=== PATIENT | male | born 1935 | race Caucasian/White ===

== ENCOUNTER 2017-04-02 17:06 | Inpatient (IN) | payer MEDICARE, BC ==
[~2017-04-02] VITALS: Ht 193 cm; Wt 100.0 kg
[2017-04-02] MEDS ORDERED: IOHEXOL 350 MG/ML 10 ML VIAL (for RAD DIAG) IVCONTRAST ONE (17:07)
[2017-04-02] MEDS ORDERED: ceFAZolin 2 GM PREMIX 50 ML ONE (17:11)
--- NOTE | 2017-04-02 17:22 | RADRPT ---
EXAM DATE/TIME: 04/02/2017 16:58 [facility] COMPARISON: No previous studies available for comparison. INDICATIONS : Trauma alert- patient fell from tree. MEDICAL HISTORY : None. SURGICAL HISTORY : None. ENCOUNTER: Initial ACUITY: 1 day PAIN SCORE: 10/10 LOCATION: Bilateral chest FINDINGS: A single AP portable supine view of the chest was obtained. The lung apices are cut off the exam. The patient is status post median sternotomy. There are no confluent infiltrates or effusions. The visua lized bony structures are intact. The heart size is within normal limits. There are calcified gallsto venita in the right upper abdomen. CONCLUSION: 1. Limited suboptimal study demonstrating no acute cardiopulmonary disease. 2. Calcified gallstones. Luis Roa MD on April 02, 2017 at 17:19 Board Certified Radiologist. This report was verified electronically.
--- NOTE | 2017-04-02 17:27 | HHI.HP ---
HPI Service Critical Care Medicine Primary Care Physician Unknown Admission Diagnosis Diagnosis: Chief Complaint: Back pain Travel History International Travel<30 Days: No Contact w/Intl Traveler <30 Da: No Traveled to Known Affected Are: No Review of Systems Constitutional: DENIES: Diaphoretic episodes, Fatigue, Fever, Weight gain, Weight loss, Chills, Dizziness, Change in appetite, Night Sweats Endocrine: DENIES: Heat/cold intolerance, Polydipsia, Polyuria, Polyphagia Eyes: DENIES: Blurred vision, Diplopia, Eye inflammation, Eye pain, Vision loss , Photosensitivity, Double Vision Ears, nose, mouth, throat: DENIES: Tinnitus, Hearing loss, Vertigo, Nasal discharge, Oral lesions, Throat pain, Hoarseness, Ear Pain, Running Nose, Epistaxis, Sinus Pain, Toothache, Odynophagia Respiratory: DENIES: Apneas, Cough, Snoring, Wheezing, Hemoptysis, Sputum production, Shortness of breath Cardiovascular: DENIES: Chest pain, Palpitations, Syncope, Dyspnea on Exertion , PND, Lower Extremity Edema, Orthopnea, Claudication Gastrointestinal: DENIES: Abdominal pain, Black stools, Bloody stools, Constipation, Diarrhea, Nausea, Vomiting, Difficulty Swallowing, Anorexia Genitourinary: DENIES: Sexual dysfunction, Urinary frequency, Urinary incontinence, Urgency, Hematuria, Dysuria, Nocturia, Penile Discharge, Testicular Pain, Testicular Swelling Musculoskeletal: COMPLAINS OF: Back pain (acute upper thoracic, chronic lumbar) Integumentary: DENIES: Abnormal pigmentation, Nail changes, Pruritus, Rash Hematologic/lymphatic: DENIES: Bruising, Lymphadenopathy Immunologic/allergic: DENIES: Eczema, Urticaria Neurologic: DENIES: Abnormal gait, Headache, Localized weakness, Paresthesias, Seizures, Speech Problems, Tremor, Poor Balance Psychiatric: DENIES: Anxiety, Confusion, Mood changes, Depression, Hallucinations, Agitation, Suicidal Ideation, Homicidal Ideation, Delusions Past Family Social History Allergies: Coded Allergies: No Known Allergies (Unverified , 04/02/17) Past Medical History HTN CAD DM Hypercholesterolemia Chronic back pain Gout Past Surgical History CABG X4 Vasectomy Family History Reviewed, not relevant Social History Denies alcohol, tobacco or drugs Physical Exam Physical Exam A&O, NAD PERRL, EOMI, sclera non icteric, conjunctiva pink, mucosa moist Neck soft, NT, trachea midline CTA B, no tenderness or crepitus to palpation RRR Tender upper thoracic spine Abd soft, NT, ND Pelvis stable, non tender, palpable femoral arteries No CCE, palpable DP 2.5 cm laceration left anterior saez - washed out and closed in TB, superficial abrasion right anterior saez CN 2-12 grossly intact, no focal neurologic defecit Mood and affect appropriate Caprini VTE Risk Assessment Caprini VTE Risk Assessment: Mod/High Risk (score >= 2) VTE Pharm Contraindication: Spinal surgery Caprini Risk Assessment Model Point Value = 1 Point Value = 2 Point Value = 3 Point Value = 5 Age 41-60 Minor surgery BMI > 25 kg/m2 Swollen legs Varicose veins or History of unexplained or recurrent spontaneous Oral contraceptives or hormone replacement Sepsis (< 1 month) Serious lung disease, including pneumonia (< 1 month) Abnormal pulmonary function Acute myocardial infarction Congestive heart failure (< 1 month) History of inflammatory bowel disease Medical patient at bed rest Age 61-74 Arthroscopic surgery Major open surgery (> 45 min) Laparoscopic surgery (> 45 min) Malignancy Confined to bed (> 72 hours) Immobilizing plaster cast Central venous access Age >= 75 History of VTE Family history of VTE Factor V Leiden Prothrombin [id number] Lupus anticoagulant Anticardiolipin antibodies Elevated serum homocysteine Heparin-induced thrombocytopenia Other congenital or acquired thrombophilia Stroke (< 1 month) Elective arthroplasty Hip, pelvis, or leg fracture Acute spinal cord injury (< 1 month) Prophylaxis Regimen Total Risk Factor Score Risk Level Prophylaxis Regimen 0-1 Low Early ambulation 2 Moderate Order ONE of the following: *Sequential Compression Device (SCD) *Heparin 5000 units SQ BID 3-4 Higher Order ONE of the following medications: *Heparin 5000 units SQ TID *Enoxaparin/Lovenox 40 mg SQ daily (WT < 150 kg, CrCl > 30 mL/min) *Enoxaparin/Lovenox 30 mg SQ daily (WT < 150 kg, CrCl > 10-29 mL/min) *Enoxaparin/Lovenox 30 mg SQ BID (WT < 150 kg, CrCl > 30 mL/min) AND/OR *Sequential Compression Device (SCD) 5 or more Highest Order ONE of the following medications: *Heparin 5000 units SQ TID (Preferred with Epidurals) *Enoxaparin/Lovenox 40 mg SQ daily (WT < 150 kg, CrCl > 30 mL/min) *Enoxaparin/Lovenox 30 mg SQ daily (WT < 150 kg, CrCl > 10-29 mL/min) *Enoxaparin/Lovenox 30 mg SQ BID (WT < 150 kg, CrCl > 30 mL/min) AND *Sequential Compression Device (SCD) Assessment and Plan Assessment and Plan fall from ladder approximately ten to fifteen feet Cuco Urbina MD Apr 02, 2017 17:27
--- NOTE | 2017-04-02 17:29 | RADRPT ---
EXAM DATE/TIME: 04/02/2017 17:14 [facility] COMPARISON: No previous studies available for comparison. INDICATIONS : Trauma alert, fall. RADIATION DOSE: 56.35 CTDIvol (mGy) MEDICAL HISTORY : Diabetes mellitus type 2. Hypertension. SURGICAL HISTORY : CABG ENCOUNTER: Initial ACUITY: 1 day PAIN SCALE: 0/10 LOCATION: cranial TECHNIQUE: Multiple contiguous axial images were obtained of the head. Using automated exposure control and adj ustment of the mA and/or kV according to patient size, radiation dose was kept as low as reasonably a chievable to obtain optimal diagnostic quality images. DICOM format image data is available electro nically for review and comparison. FINDINGS: CEREBRUM: There is diffuse moderate atrophic change with sulcal and ventricular prominence. No evidence of midl ine shift, mass lesion, hemorrhage or acute infarction. No extra-axial fluid collections are seen. POSTERIOR FOSSA: The cerebellum and brainstem are intact. The 4th ventricle is midline. The cerebellopontine angle i s unremarkable. EXTRACRANIAL: The visualized portion of the orbits is intact. SKULL: The calvaria is intact. No evidence of skull fracture. CONCLUSION: Negative trauma CT. Luis Roa MD on April 02, 2017 at 17:25 Board Certified Radiologist. This report was verified electronically.
[2017-04-02 17:30] LABS: I-STAT POTASSIUM 4.5 MMOL/L (3.5-4.9)
[2017-04-02 17:33] LABS: AUTOMATED NEUTROPHIL # 15.9 TH/MM3 (1.8-7.7); BASOPHIL # 0.1 TH/MM3 (0-0.2); BASOPHIL % 0.4 % (0.0-2.0); EOSINOPHIL # 0.1 TH/MM3 (0-0.4); EOSINOPHIL % 0.7 % (0.0-4.0); HEMATOCRIT 39.6 % (39.0-51.0); HEMO FLAGS DIFF FINAL; LYMPH % 5.5 % (9.0-44.0); MEAN CELL VOLUME 98.5 FL (80.0-100.0); MEAN CORPUSCULAR HEMOGLOBIN 33.9 PG (27.0-34.0); MEAN CORPUSCULAR HGB CONC 34.4 % (32.0-36.0); MONO % 7.7 % (0.0-8.0); NEUT % 85.7 % (16.0-70.0); PLATELET COUNT 138 TH/MM3 (150-450); RED BLOOD COUNT 4.02 MIL/MM3 (4.50-5.90); RED CELL DISTRIBUTION WIDTH 13.8 % (11.6-17.2); WHITE BLOOD COUNT 18.5 TH/MM3 (4.0-11.0)
--- NOTE | 2017-04-02 17:40 | RADRPT ---
EXAM DATE/TIME: 04/02/2017 17:14 [facility] COMPARISON: No previous studies available for comparison. INDICATIONS : Trauma alert, fall RADIATION DOSE: 44.07 CTDIvol (mGy) MEDICAL HISTORY : Hypertension. Diabetes mellitus type 2. SURGICAL HISTORY : CABG ENCOUNTER: Initial ACUITY: 1 day PAIN SCALE: 0/10 LOCATION: neck TECHNIQUE: Volumetric scanning of the cervical spine was performed. Multiplanar reconstructions in the sagittal, coronal and oblique axial planes were performed. Using automated exposure control and adjustment o f the mA and/or kV according to patient size, radiation dose was kept as low as reasonably achievable to obtain optimal diagnostic quality images. DICOM format image data is available electronically f or review and comparison. FINDINGS: The sagittal reconstructions demonstrate that the cervical vertebral bodies are intact. There are fra ctures involving the anterior aspects of the T1 and T2 vertebral bodies with invagination of the supe rior endplates. The dens is intact. The alignment is anatomic. The axial images images of the cervical vertebral bodies and posterior elements are intact. Degenerat shari changes are noted involving the facet joints at multiple levels. The fractures of the T1 and T2 v ertebral bodies are again visualized. CONCLUSION: 1. Racture's of the T1 and T2 vertebral arteries. Please see thoracic spine CT for further details. 2. The cervical spine is intact with no cervical fracture. Luis Roa MD on April 02, 2017 at 17:32 Board Certified Radiologist. This report was verified electronically.
[2017-04-02 17:41] LABS: PROTHROMBIN TIME - PATIENT 11.1 SEC (9.8-11.6)
[2017-04-02 17:43] VITALS: BP 128/66; PULSE 60; RESP 18; TEMP 99.8; O2SAT 97
[2017-04-02 17:45] VITALS: BP 128/66; PULSE 69; RESP 18; O2SAT 92; O2SAT 97
--- NOTE | 2017-04-02 17:45 | RADRPT ---
EXAM DATE/TIME: 04/02/2017 17:21 [facility] COMPARISON: No previous studies available for comparison. INDICATIONS : Trauma alert, fall. T1 and T2 vertebral body fracture seen on cervical spine CT. IV CONTRAST: 75 cc Omnipaque 350 (iohexol) IV ; Cumulative dose for multiple exams. RADIATION DOSE: 14.59 CTDIvol (mGy) ; Combined studies - Thorax/Abdomen/Pelvis MEDICAL HISTORY : Hypertension. Diabetes mellitus type 2. SURGICAL HISTORY : CABG ENCOUNTER: Initial ACUITY: 1 day PAIN SCALE: 0/10 LOCATION: chest TECHNIQUE: Volumetric scanning of the chest was performed. Using automated exposure control and adjustment of t he mA and/or kV according to patient size, radiation dose was kept as low as reasonably achievable to obtain optimal diagnostic quality images. DICOM format image data is available electronically for review and comparison. Follow-up recommendations for detected pulmonary nodules are based at a minimum on nodule size and pa tient risk factors according to Fleischner Society Guidelines. FINDINGS: LUNGS: There is no consolidation or pneumothorax. No concerning pulmonary nodule is visualized. PLEURA: There is no pleural thickening or pleural effusion. MEDIASTINUM: Status post median sternotomy which appears recent. The median sternotomy edges are sharp and nonunit ed in appearance. There is increased density in the anterior mediastinum. There is no adenopathy. Cor onary artery calcifications are present. The heart size is within normal limits and there is no peric ardial effusion or adenopathy. AXILLAE: Within normal limits. No lymphadenopathy. SKELETAL: The known fractures of the T1 and T2 vertebral bodies are again visualized. MISCELLANEOUS: The visualized upper abdominal organs demonstrate no acute abnormality. There are multiple calcified gallstones noted. CONCLUSION: 1. The known fractures of the T1 and T2 vertebral bodies are again visualized. Please see thoracic sp ine CT for further details. 2. Status post median sternotomy appears recent. There is increased density in the anterior mediastin um which represents small amount of hemorrhage or edema and is nonspecific. This could be postsurgica l. 3. Multiple calcified gallstones. Luis Roa MD on April 02, 2017 at 17:38 Board Certified Radiologist. This report was verified electronically.
--- NOTE | 2017-04-02 17:47 | RADRPT ---
EXAM DATE/TIME: 04/02/2017 17:21 [facility] COMPARISON: No previous studies available for comparison. INDICATIONS : Trauma alert, fall. IV CONTRAST: 75 cc Omnipaque 350 (iohexol) IV ; Cumulative dose for multiple exams. ORAL CONTRAST: No oral contrast ingested. RADIATION DOSE: 14.59 CTDIvol (mGy) ; Combined studies - Thorax/Abdomen/Pelvis MEDICAL HISTORY : Hypertension. Diabetes mellitus type 2. SURGICAL HISTORY : CABG ENCOUNTER: Initial ACUITY: 1 day PAIN SCALE: 0/10 LOCATION: abdomen TECHNIQUE: Volumetric scanning of the abdomen and pelvis was performed. Using automated exposure control and ad justment of the mA and/or kV according to patient size, radiation dose was kept as low as reasonably achievable to obtain optimal diagnostic quality images. DICOM format image data is available electro nically for review and comparison. FINDINGS: LOWER LUNGS: The visualized lower lungs are clear. LIVER: Homogeneous density without lesion. There is no dilation of the biliary tree. There are multiple rosemary cified gallstones with no gallbladder wall thickening or inflammatory change. SPLEEN: Normal size without lesion. PANCREAS: Within normal limits. KIDNEYS: Normal in size and shape. There is no solid mass, stone or hydronephrosis. There are simple cysts in the left kidney. ADRENAL GLANDS: Within normal limits. VASCULAR: There is no aortic aneurysm. BOWEL/MESENTERY: The stomach, small bowel, and colon demonstrate no acute abnormality. There is no free intraperitone al air or fluid. ABDOMINAL WALL: Within normal limits. RETROPERITONEUM: There is no lymphadenopathy. BLADDER: No wall thickening or mass. REPRODUCTIVE: Within normal limits. INGUINAL: There is no lymphadenopathy or hernia. MUSCULOSKELETAL: Within normal limits for patient age. CONCLUSION: 1. No evidence of visceral injury. 2. Calcified gallstones. 3. Left renal cysts. Luis Roa MD on April 02, 2017 at 17:43 Board Certified Radiologist. This report was verified electronically.
--- NOTE | 2017-04-02 17:54 | PD ---
HPI Chief Complaint: Trauma (Alert) Time Seen by Provider: 17:20 Travel History International Travel<30 days: No Contact w/Intl Traveler<30days: No Traveled to known affect area: No History of Present Illness HPI Patient is an 82-year-old male who was a trauma alert transfer from [facility]. As per patient, patient was cutting trees today, reports that he fell 15-18 feet down from the tree onto the ground. Patient denies any loss of consciousness on scene. Patient actually drove himself to the hospital. Patient does take aspirin as well as atenolol. Patient has history of coronary artery disease and has history of CABG in the past. As per report from [facility], patient was given transaxemic acid as he did have a positive fast exam. Patient with complaints of pain all over his body at this time. PFSH Past Medical History Hx Anticoagulant Therapy: Yes Cardiac Catheterization: Yes Cardiovascular Problems: Yes Cerebrovascular Accident: Yes Diabetes: Yes Past Surgical History Coronary Artery Bypass Graft: Yes Social History Alcohol Use: No Tobacco Use: No Substance Use: No Allergies-Medications (Allergen,Severity, Reaction): Coded Allergies: No Known Allergies (Unverified , 04/02/17) Review of Systems General / Constitutional: No: Fever Eyes: No: Visual changes HENT: No: Headaches Cardiovascular: No: Chest Pain or Discomfort Respiratory: No: Shortness of Breath Gastrointestinal: No: Abdominal Pain Genitourinary: No: Dysuria Musculoskeletal: Positive: Pain Skin: No Rash Neurologic: No: Weakness Psychiatric: No: Depression Endocrine: No: Polydipsia Hematologic/Lymphatic: No: Easy Bruising Physical Exam Narrative GENERAL: moderate distress SKIN: Focused skin assessment warm/dry. HEAD: Atraumatic. Normocephalic. EYES: Pupils equal and round. No scleral icterus. No injection or drainage. ENT: No nasal bleeding or discharge. Mucous membranes pink and moist. NECK: Trachea midline. No JVD. Patient in c-spine precautions CARDIOVASCULAR: Regular rate and rhythm. No murmur appreciated. RESPIRATORY: No accessory muscle use. Clear to auscultation. Breath sounds equal bilaterally. GASTROINTESTINAL: Abdomen soft, non-tender, nondistended. Hepatic and splenic margins not palpable. MUSCULOSKELETAL: No obvious deformities. No clubbing. No cyanosis. No edema. Patient with 2.5cm laceration to anterior right shit, patient moving all extremities NEUROLOGICAL: Awake and alert. No obvious cranial nerve deficits. Motor grossly within normal limits. Normal speech. PSYCHIATRIC: Appropriate mood and affect; insight and judgment normal. Data Data Last Documented VS Vital Signs Date Time Temp Pulse Resp B/P (MAP) Pulse Ox O2 Delivery O2 Flow Rate FiO2 04/02/17 17:45 97 Nasal Cannula 2.00 04/02/17 17:45 69 18 128/66 (86) 04/02/17 17:43 99.8 Orders Orders Cefazolin 2 Gm Premix (Ancef 2 Gm Premix (04/02/17 17:11) I-Stat Profile (04/02/17 17:09) I-Stat Creatinine (04/02/17 17:09) Complete Blood Count With Diff (04/02/17 17:09) Prothrombin Time / Inr (Pt) (04/02/17 17:09) Act Partial Throm Time (Ptt) (04/02/17 17:09) Type And Screen (04/02/17 17:09) Chest, Single Ap (04/02/17 17:09) Ct Brain W/O Iv Contrast(Rout) (04/02/17 17:09) Ct Cerv Spine W/O Contrast (04/02/17 17:09) Ct Abd/Pel W Iv Contrast(Rout) (04/02/17 17:09) Ct Thorax/ Chest W Iv Contrast (04/02/17 17:09) Ct Thor Spine W/O Contrast (04/02/17 17:09) Ct Lumb Spine W/O Contrast (04/02/17 17:09) Iv Access Insert/Monitor (04/02/17 17:09) Ecg Monitoring (04/02/17 17:09) Oximetry (04/02/17 17:09) Oxygen Administration (04/02/17 17:09) Electrocardiogram (04/02/17 17:32) Ckmb (Isoenzyme) Profile (04/02/17 17:32) Troponin I (04/02/17 17:32) Iohexol 350 Inj (Omnipaque 350 Inj) (04/02/17 17:07) Admit To Inpatient (04/02/17 ) Vital Signs (Adult) CLARK.QSHIFT (04/02/17 17:49) Intake + Output CLARK.Q8H (04/02/17 17:49) Neuro Checks CLARK.Q4H (04/02/17 17:49) Activity Bed Rest (04/02/17 17:49) Diet Diabetic (04/02/17 Dinner) Scd / Neil / Foot Pump CLARK.QSHIFT (04/02/17 17:49) Resp Incentive Spirometry (04/02/17 ) ^ Cervical Collar (04/02/17 17:49) Complete Blood Count With Diff (04/03/17 06:00) Basic Metabolic Panel (Bmp) (04/03/17 06:00) Sodium Chloride 0.9% Flush (Ns Flush) (04/02/17 18:00) Acetamin-Hydrocod 325-5 Mg ([place] 5-325 (04/02/17 18:00) Acetamin-Hydrocod 325-5 Mg ([place] 5-325 (04/02/17 18:00) Ketorolac Inj (Toradol Inj) (04/02/17 18:00) Enalaprilat Inj (Vasotec Inj) (04/02/17 18:00) Ondansetron Inj (Zofran Inj) (04/02/17 18:00) Consult Pt Eval & Treat (04/03/17 06:00) Docusate Sodium (Colace) (04/02/17 21:00) Magnesium Hydroxide Liq (Milk Of Magnesi (04/02/17 18:00) Consult Neurosurgery (04/02/17 ) ^ Initiate Protocol (04/02/17 17:49) Instruction (04/02/17 17:49) Misc Nursing Information (04/02/17 18:00) Chlorhexidine 2% Cloth (Chlorhexidine 2% (04/03/17 04:00) Chlorhexidine 2% Cloth (Chlorhexidine 2% (04/02/17 18:00) Mrsa Pcr Surveillance (04/02/17 17:49) Inpatient Certification (04/02/17 ) Labs Laboratory Tests Test 04/02/17 17:09 White Blood Count 18.5 TH/MM3 Red Blood Count 4.02 MIL/MM3 Hemoglobin 13.6 GM/DL Bedside Hemoglobin 12.9 G/DL Hematocrit 39.6 % Bedside Hematocrit 38.0 % Mean Corpuscular Volume 98.5 FL Mean Corpuscular Hemoglobin 33.9 PG Mean Corpuscular Hemoglobin Concent 34.4 % Red Cell Distribution Width 13.8 % Platelet Count 138 TH/MM3 Mean Platelet Volume 8.9 FL Neutrophils (%) (Auto) 85.7 % Lymphocytes (%) (Auto) 5.5 % Monocytes (%) (Auto) 7.7 % Eosinophils (%) (Auto) 0.7 % Basophils (%) (Auto) 0.4 % Neutrophils # (Auto) 15.9 TH/MM3 Lymphocytes # (Auto) 1.0 TH/MM3 Monocytes # (Auto) 1.4 TH/MM3 Eosinophils # (Auto) 0.1 TH/MM3 Basophils # (Auto) 0.1 TH/MM3 CBC Comment DIFF FINAL Differential Comment Prothrombin Time 11.1 SEC Prothromb Time International Ratio 1.0 RATIO Activated Partial Thromboplast Time 25.0 SEC Bedside Sodium 145 MMOL/L Bedside Potassium 4.5 MMOL/L Bedside Chloride 107 MMOL/L Bedside Blood Urea Nitrogen 21 MG/DL Bedside Creatinine 1.8 MG/DL Bedside Glucose 124 MG/DL [facility] Medical Screen Exam Complete: Yes Emergency Medical Condition: Yes Interpretation(s) EKG at 1741: Sinus daniel at 50bpm, qt/qtc: 401/373, non specific changes Vital Signs Date Time Temp Pulse Resp B/P (MAP) Pulse Ox O2 Delivery O2 Flow Rate FiO2 04/02/17 17:45 97 Nasal Cannula 2.00 04/02/17 17:43 99.8 60 18 128/66 (86) 97 Nasal Cannula 2.00 Laboratory Tests Test 04/02/17 17:09 White Blood Count 18.5 TH/MM3 (4.0-11.0) Red Blood Count 4.02 MIL/MM3 (4.50-5.90) Hemoglobin 13.6 GM/DL (13.0-17.0) Bedside Hemoglobin 12.9 G/DL (12.0-17.0) Hematocrit 39.6 % (39.0-51.0) Bedside Hematocrit 38.0 % (38.0-51.0) Mean Corpuscular Volume 98.5 FL (80.0-100.0) Mean Corpuscular Hemoglobin 33.9 PG (27.0-34.0) Mean Corpuscular Hemoglobin Concent 34.4 % (32.0-36.0) Red Cell Distribution Width 13.8 % (11.6-17.2) Platelet Count 138 TH/MM3 (150-450) Mean Platelet Volume 8.9 FL (7.0-11.0) Neutrophils (%) (Auto) 85.7 % (16.0-70.0) Lymphocytes (%) (Auto) 5.5 % (9.0-44.0) Monocytes (%) (Auto) 7.7 % (0.0-8.0) Eosinophils (%) (Auto) 0.7 % (0.0-4.0) Basophils (%) (Auto) 0.4 % (0.0-2.0) Neutrophils # (Auto) 15.9 TH/MM3 (1.8-7.7) Lymphocytes # (Auto) 1.0 TH/MM3 (1.0-4.8) Monocytes # (Auto) 1.4 TH/MM3 (0-0.9) Eosinophils # (Auto) 0.1 TH/MM3 (0-0.4) Basophils # (Auto) 0.1 TH/MM3 (0-0.2) CBC Comment DIFF FINAL Differential Comment Prothrombin Time 11.1 SEC (9.8-11.6) Prothromb Time International Ratio 1.0 RATIO Activated Partial Thromboplast Time 25.0 SEC (24.3-30.1) Bedside Sodium 145 MMOL/L (138-146) Bedside Potassium 4.5 MMOL/L (3.5-4.9) Bedside Chloride 107 MMOL/L (98-109) Bedside Blood Urea Nitrogen 21 MG/DL (8-26) Bedside Creatinine 1.8 MG/DL (0.8-1.3) Bedside Glucose 124 MG/DL (60-95) Differential Diagnosis Differential includes intracranial hemorrhage, cervical spine fracture, rib fracture, pneumothorax, intra-abdominal bleeding Narrative Course Patient is an 82-year-old male sent from [facility] under a trauma alert as patient fell 15-18 feet from a ladder onto the floor while cutting a tree down today. Patient denies any loss of consciousness on scene. He does admit taking a baby aspirin every single day, he was given transexcemic acid by ER physician at [facility] as it was thought the patient had a positive FAST exam. Patient presents the emergency room bordered and collared, vital signs are stable. Patient did have a 2.5cm laceration to left anterior saez. A staple was placed by Dr Urbina. Tetanus is up to date as per patient. He was given 2 g of Ancef in the ER. Please see trauma protocol for full trauma workup. Trauma Alert - Level One Trauma Alert Level One: Full trauma team activate, Patient evaluated, Trauma surgeon summoned Time Surgeon Summoned: 16:17 Time Anesthesiologist Summoned: 16:52 Diagnosis Diagnosis: Primary Impression: Trauma Admitting Physician Requests: Observation Velia Burgess DO Apr 02, 2017 17:54
[2017-04-02] MEDS ORDERED: ASPI81CH CHEW (17:57)
[2017-04-02] MEDS ORDERED: ALLO100T PO (17:57)
[2017-04-02] MEDS ORDERED: ROSU20 PO (17:57)
[2017-04-02] MEDS ORDERED: ONDANSETRON HCL 4 MG/2 ML VIAL IV PRN (18:00)
[2017-04-02] MEDS ORDERED: CHLORHEXIDINE GLUCONATE 2 % 1 PACK (2 CLOTHS) TOP PRN (18:00)
[2017-04-02] MEDS ORDERED: ENALAPRILAT 1.25 MG/ML VIAL IV PRN (18:00)
[2017-04-02] MEDS ORDERED: MISCELLANEOUS NURSING INFORMATION XX SCH (18:00)
[2017-04-02] MEDS ORDERED: MAGNESIUM HYDROXIDE SUSP 30 ML CUP PO PRN (18:00)
[2017-04-02] MEDS ORDERED: KETOROLAC TROMETHAMINE 30 MG/ML (IVP) VIAL IVP PRN (18:00)
[2017-04-02] MEDS ORDERED: SODIUM CHLORIDE 0.9% FLUSH 10 ML FLUSH IV FLUSH PRN (18:00)
--- NOTE | 2017-04-02 18:03 | RADRPT ---
EXAM DATE/TIME: 04/02/2017 17:19 [facility] COMPARISON: No previous studies available for comparison. INDICATIONS : Trauma alert, fall . RADIATION DOSE: ; Reconstructed from previous dataset, no dose MEDICAL HISTORY : Hypertension. Diabetes mellitus type 2. SURGICAL HISTORY : CABG ENCOUNTER: Initial ACUITY: 1 day PAIN SCALE: 0/10 LOCATION: Paraspinal TECHNIQUE: Volumetric scanning of the lumbar spine was performed. Multiplanar reconstructions in the sagittal, coronal and oblique axial planes were performed. Using automated exposure control and adjustment of the mA and/or kV according to patient size, radiation dose was kept as low as reasonably achievable t o obtain optimal diagnostic quality images. DICOM format image data is available electronically for review and comparison. FINDINGS: VERTEBRAE: Normal vertebral body height. ALIGNMENT: No evidence of subluxation. T12-L1: There is minimal loss of vertebral body height without fracture. L1-L2: There is minimal also reviewed body height without fracture. There is mild disc bulging evident. Mo derate degenerative changes are present in the facets. L2-L3: Mild disc bulge is evident with moderate degenerative change of the facets. Fractures are appreciate d. L3-L4: Mild disc bulge is present moderate degenerative changes are present facets. There is no evidence fo r fracture. L4-L5: The thecal sac has a normal diameter. No evidence of disc bulge or protrusion. The neural foramina are patent bilaterally. L5-S1: Extensive degenerative changes are present facets with bilateral neural foramina encroachment. The S I joints are normal. This is subtle nondisplaced fracture across the pedicle of L5 right side. CONCLUSION: Extensive degenerative changes as described above Subtle nondisplaced fracture right pedicle of L5 No other fractures are appreciated Marcio Stein MD FACR on April 02, 2017 at 17:58 Board Certified Radiologist. This report was verified electronically.
--- NOTE | 2017-04-02 18:03 | RADRPT ---
EXAM DATE/TIME: 04/02/2017 17:19 [place] COMPARISON: CT CERVICAL SPINE W/O CONTRAST, April 02, 2017, 17:14. INDICATIONS : Trauma alert, fall. Neck and back pain. Known thoracic spine fractures seen on cervical spine CT. RADIATION DOSE: ; Reconstructed from previous dataset, no dose MEDICAL HISTORY : Hypertension. Diabetes mellitus type 2. SURGICAL HISTORY : CABG ENCOUNTER: Initial ACUITY: 1 day PAIN SCALE: 5/10 LOCATION: Bilateral upper chest TECHNIQUE: Volumetric scanning of the thoracic spine was performed. Multiplanar reconstructions in the sagittal , coronal and oblique axial planes were performed. Using automated exposure control and adjustment o f the mA and/or kV according to patient size, radiation dose was kept as low as reasonably achievable to obtain optimal diagnostic quality images. DICOM format image data is available electronically f or review and comparison. FINDINGS: The sagittal and coronal images again demonstrate the fracture deformities of the T1 and T2 vertebral bodies. There is invagination of the superior endplates with fracture lines extending through the an terior vertebral bodies. There is no retropulsion. The posterior aspect of the vertebral bodies are i ntact. There is also a mild compression fracture of the T5 vertebral body with small nondisplaced fra cture lines. The posterior aspect of the vertebral body is intact with no retropulsion. The other radha tebral bodies are intact. There is mild scoliosis. The axial images again demonstrate fracture lines involving the T1 and T2 vertebral bodies. There is surrounding paraspinous soft tissue swelling. The posterior elements are intact and there is no retro pulsion. The T5 fractures are faintly visualized and there is no retropulsion. There is no evidence o f an epidural hematoma. The visualized ribs are intact as well. CONCLUSION: Fractures of the T1, T2 and T5 vertebral bodies with no retropulsion. Luis Roa MD on April 02, 2017 at 17:54 Board Certified Radiologist. This report was verified electronically.
--- NOTE | 2017-04-02 18:12 | PD.CONS ---
[facility] Service neurosurg Consult Requested By Dr Ramos Reason for Consult Trauma alert, thoracic fractures Primary Care Physician Unknown History of Present Illness This is a 82-year-old male who was a trauma alert transfer from [facility]. Aparently he was cutting trees today, when he fell 15-18 feet down from the tree onto the ground. Patient denies any loss of consciousness on scene. No seizure activity noted. No tongue biting. No incontinence of stool or urine. Apparently he drove himself to the hospital. He takes aspirin as well as atenolol. Patient has history of coronary artery disease and has history of CABG in the past. At [facility], he was given transaxemic acid as he did have a positive fast exam. Patient with complaints of pain all over his body at this time. CT of the thoracic spine show a T1 and T2 fracture. Neurosurgical consultation was requested Review of Systems Constitutional: DENIES: Diaphoretic episodes, Fatigue, Fever, Weight gain, Weight loss, Chills, Dizziness, Change in appetite, Night Sweats Endocrine: DENIES: Heat/cold intolerance, Polydipsia, Polyuria, Polyphagia Eyes: DENIES: Blurred vision, Diplopia, Eye inflammation, Eye pain, Vision loss , Photosensitivity, Double Vision Ears, nose, mouth, throat: DENIES: Tinnitus, Hearing loss, Vertigo, Nasal discharge, Oral lesions, Throat pain, Hoarseness, Ear Pain, Running Nose, Epistaxis, Sinus Pain, Toothache, Odynophagia Respiratory: DENIES: Apneas, Cough, Snoring, Wheezing, Hemoptysis, Sputum production, Shortness of breath Cardiovascular: DENIES: Chest pain, Palpitations, Syncope, Dyspnea on Exertion , PND, Lower Extremity Edema, Orthopnea, Claudication Gastrointestinal: DENIES: Abdominal pain, Black stools, Bloody stools, Constipation, Diarrhea, Nausea, Vomiting, Difficulty Swallowing, Anorexia Genitourinary: DENIES: Sexual dysfunction, Urinary frequency, Urinary incontinence, Urgency, Hematuria, Dysuria, Nocturia, Penile Discharge, Testicular Pain, Testicular Swelling Musculoskeletal: COMPLAINS OF: Muscle aches, Back pain, Neck pain, DENIES: Joint pain, Stiffness, Joint Swelling Integumentary: DENIES: Abnormal pigmentation, Nail changes, Pruritus, Rash Hematologic/lymphatic: COMPLAINS OF: Bruising, DENIES: Lymphadenopathy Immunologic/allergic: DENIES: Eczema, Urticaria Neurologic: COMPLAINS OF: Headache, DENIES: Abnormal gait, Localized weakness, Paresthesias, Seizures, Speech Problems, Tremor, Poor Balance Psychiatric: DENIES: Anxiety, Confusion, Mood changes, Depression, Hallucinations, Agitation, Suicidal Ideation, Homicidal Ideation, Delusions Past Family Social History Allergies: Coded Allergies: No Known Allergies (Unverified , 04/02/17) Past Medical History Cardiac Catheterization: Yes Cardiovascular Problems: Yes Cerebrovascular Accident: Yes Diabetes: Yes Past Surgical History Coronary Artery Bypass Graft: Yes Active Ordered Medications Current Medications Cefazolin Sodium/ Dextrose 50 ml @ As Directed STK-MED ONCE .ROUTE ; Start at 17:11; Stop 04/02/17 at 17:12; Status DC Iohexol (Omnipaque 350 Inj) 75 ml STK-MED ONCE IVCONTRAST Last administered on 04/02/17 17:07; Start 04/02/17 at 17:07; Stop 04/02/17 at 17:41; Status DC Sodium Chloride (NS Flush) 2 ml UNSCH PRN IV FLUSH FLUSH AFTER USING IV ACCESS ; Start 04/02/17 at 18:00 Acetaminophen/ Hydrocodone Bitart ([place] 5-325 Mg) 1 tab Q4H PRN PO PAIN SCALE 1 TO 5 Last administered on 04/03/17 09:12; Start 04/02/17 at 18:00 Acetaminophen/ Hydrocodone Bitart ([place] 5-325 Mg) 2 tab Q4H PRN PO PAIN SCALE 6 TO 10 Last administered on 04/03/17 06:25; Start 04/02/17 at 18:00 Ketorolac Tromethamine (Toradol Inj) 30 mg Q6H PRN IVP BREAKTHROUGH PAIN Last administered on 04/02/17 21:57; Start 04/02/17 at 18:00; Stop 04/03/17 at 11:06; Status DC Enalaprilat (Vasotec Inj) 1.25 mg Q8H PRN IV SBP>180, DBP>95; Start 04/02/17 at 18:00 Ondansetron HCl (Zofran Inj) 4 mg Q4H PRN IV NAUSEA OR VOMITING; Start 04/02/17 at 18:00 Docusate Sodium (Colace) 100 mg BID PO Last administered on 04/03/17 09:08; Start 04/02/17 at 21:00 Magnesium Hydroxide (Milk Of Magnesia Liq) 30 ml Q6H PRN PO CONSTIPATION; Start 04/02/17 at 18:00 Miscellaneous Information 1 [id number] ; Start 04/02/17 at 18:00 Chlorhexidine Gluconate (Chlorhexidine 2% Cloth) 3 pack Taper DAILY@04 TOP ; Start 04/03/17 at 04:00; Stop 03/30/18 at 03:59 Chlorhexidine Gluconate (Chlorhexidine 2% Cloth) 3 pack UNSCH PRN TOP HYGIENIC CARE; Start 04/02/17 at 18:00 Morphine Sulfate (Morphine Inj) 4 mg ONCE ONCE IV PUSH ; Start 04/02/17 at 18:15 ; Stop 04/02/17 at 18:15; Status DC Famotidine (Pepcid) 20 mg BID PO Last administered on 04/03/17 09:08; Start 04/03/17 at 09:00 Allopurinol (Zyloprim) 100 mg DAILY PO Last administered on 04/03/17 09:08; Start 04/03/17 at 09:00 Aspirin (Aspirin Chew) 81 mg DAILY CHEW Last administered on 04/03/17 09:09; Start 04/03/17 at 09:00 Atorvastatin Calcium (Lipitor) 40 mg DAILY PO Last administered on 04/03/17 09: 10; Start 04/03/17 at 09:00 Alprazolam (Xanax) 0.25 mg TID PRN PO ANXIETY Last administered on 04/03/17 00: 55; Start 04/03/17 at 01:00 Diphenhydramine HCl (Benadryl) 50 mg HS PO ; Start 04/03/17 at 21:00 Diphenhydramine HCl (Benadryl) 50 mg ONCE ONCE PO ; Start 04/03/17 at 01:00; Stop 04/03/17 at 01:01; Status DC Ketorolac Tromethamine (Toradol Inj) 15 mg Q6H PRN IVP BREAKTHROUGH PAIN; Start 04/03/17 at 12:00; Status UNV Methocarbamol (Robaxin) 500 mg Q8HR PO ; Start 04/03/17 at 14:00; Status UNV Enoxaparin Sodium (Lovenox Inj) 30 mg Q12H SQ ; Start 04/03/17 at 11:15; Status UNV Sertraline HCl (Zoloft) 50 mg DAILY PO ; Start 04/03/17 at 11:15; Status UNV Family History His family history was reviewed and is noncontributory to this traumatic event Social History Alcohol Use: No Tobacco Use: No Substance Use: No Physical Exam Vital Signs Vital Signs Date Time Temp Pulse Resp B/P (MAP) Pulse Ox O2 Delivery O2 Flow Rate FiO2 04/02/17 17:45 97 Nasal Cannula 2.00 04/02/17 17:45 69 18 128/66 (86) 97 Nasal Cannula 2.00 04/02/17 17:43 99.8 60 18 128/66 (86) 97 Nasal Cannula 2.00 Physical Exam The patient is alert, awake and oriented to time, place and person. Speech is fluent. Higher cognitive functions are normal. Cranial nerve examination demonstrates the pupils to be equal, round, and reactive to light. Extra-ocular movements are intact. Facial motor and sensory function are normal and symmetrical. Gross hearing is decreased bilaterally. The uvula is midline and elevates symmetrically with the soft palate. Sternocleidomastoid and trapezius muscles have normal and symmetrical strength. Other cranial nerves are intact. Neck is soft and supple. Cervical spine has a goodl range of motion in anterior flexion, extension, lateral bending, and rotation without pain. There is no tenderness to palpation to the spinous processes or paraspinal muscles. Muscle testing reveals normal bulk and tone overall without rigidity, spasticity , fasciculations, or atrophy. Muscle strength is 5/5 in all muscle groups of both upper extremities including deltoid, biceps, triceps, brachioradialis, wrist extension and systems management consultant. In the lower extremities, strength is 5/5 in both iliopsoas, quadriceps, hamstrings, plantar flexion, dorsiflexion, and extensor hallicus longus. Sensory examination is intact to light touch and sharp/dull discrimination in both the upper and lower extremities, symmetrically. Deep tendon reflexes are 2+ and symmetrical in the biceps, triceps, and brachioradialis, bilaterally, in the upper extremities. In the lower extremities , the patellar and Achilles are 2+, bilaterally. There is a bilateral plantar flexion response. Hoffmanns sign is negative. There is no clonus or other abnormal reflexes noted. Cerebellar examination is intact to [id number] test, rapid rhythmic alternating motion. There is no dysmetria, dysdiadochokinesia, truncal ataxia, or tremor. Laboratory Laboratory Tests Test 04/02/17 17:09 White Blood Count 18.5 Red Blood Count 4.02 Hemoglobin 13.6 Bedside Hemoglobin 12.9 Hematocrit 39.6 Bedside Hematocrit 38.0 Mean Corpuscular Volume 98.5 Mean Corpuscular Hemoglobin 33.9 Mean Corpuscular Hemoglobin Concent 34.4 Red Cell Distribution Width 13.8 Platelet Count 138 Mean Platelet Volume 8.9 Neutrophils (%) (Auto) 85.7 Lymphocytes (%) (Auto) 5.5 Monocytes (%) (Auto) 7.7 Eosinophils (%) (Auto) 0.7 Basophils (%) (Auto) 0.4 Neutrophils # (Auto) 15.9 Lymphocytes # (Auto) 1.0 Monocytes # (Auto) 1.4 Eosinophils # (Auto) 0.1 Basophils # (Auto) 0.1 CBC Comment DIFF FINAL Differential Comment Prothrombin Time 11.1 Prothromb Time International Ratio 1.0 Activated Partial Thromboplast Time 25.0 Bedside Sodium 145 Bedside Potassium 4.5 Bedside Chloride 107 Bedside Blood Urea Nitrogen 21 Bedside Creatinine 1.8 Bedside Glucose 124 Result Diagram: 04/02/171708 Imaging Last 48 hours Impressions Thoracic Spine CT 04/02/171708 Signed Impressions: Service Date/Time: Sunday, April 02, 2017 17:19 - CONCLUSION: Fractures of the T1, T2 and T5 vertebral bodies with no retropulsion. Luis Roa MD Lumbar Spine CT 04/02/171708 Signed Impressions: Service Date/Time: Sunday, April 02, 2017 17:19 - CONCLUSION: Extensive degenerative changes as described above Subtle nondisplaced fracture right pedicle of L5 No other fractures are appreciated Marcio Stein MD FACR Head CT 04/02/171708 Signed Impressions: Service Date/Time: Sunday, April 02, 2017 17:14 - CONCLUSION: Negative trauma CT. Luis Roa MD Chest X-Ray 04/02/171708 Signed Impressions: Service Date/Time: Sunday, April 02, 2017 16:58 - CONCLUSION: 1. Limited suboptimal study demonstrating no acute cardiopulmonary disease. 2. Calcified gallstones. Luis Roa MD Chest CT 04/02/171708 Signed Impressions: Service Date/Time: Sunday, April 02, 2017 17:21 - CONCLUSION: 1. The known fractures of the T1 and T2 vertebral bodies are again visualized. Please see thoracic spine CT for further details. 2. Status post median sternotomy appears recent. There is increased density in the anterior mediastinum which represents small amount of hemorrhage or edema and is nonspecific. This could be postsurgical. 3. Multiple calcified gallstones. Luis Roa MD Cervical Spine CT 04/02/171708 Signed Impressions: Service Date/Time: Sunday, April 02, 2017 17:14 - CONCLUSION: 1. Racture' s of the T1 and T2 vertebral arteries. Please see thoracic spine CT for further details. 2. The cervical spine is intact with no cervical fracture. Luis Roa MD Abdomen/Pelvis CT 04/02/171708 Signed Impressions: Service Date/Time: Sunday, April 02, 2017 17:21 - CONCLUSION: 1. No evidence of visceral injury. 2. Calcified gallstones. 3. Left renal cysts. Luis Roa MD Attending Statement Neuro. neuro checks in a serial fashion.Continue nonoperative treatment T1 and T2 fractures. TLSO brace Pulmonary. pulmonary toilette, nasotracheal suction, and breathing treatments with nebulizers. Eval PT and OT Nutrition. Tolerating Oral diet Renal. monitor closely urine output, BUN and creatinine Endocrine. Monitor serial Acu checks and SSI as needed in detail ID monitor for signs of infection Protonix for stress ulcer prophylaxis Neil hose and SCD's for DVT prophylaxis Jayjay Hardin MD Apr 02, 2017 18:12
--- NOTE | 2017-04-02 18:14 | HHI.HP ---
HPI Service Critical Care Medicine Primary Care Physician Unknown Admission Diagnosis Diagnosis: Chief Complaint: Upper thoracic pain Travel History International Travel<30 Days: No Contact w/Intl Traveler <30 Da: No Traveled to Known Affected Are: No History of Present Illness 82-year-old gentleman who was on a ladder trimming a tree when the branch fell and knocked him off a ladder approximately 10 feet. He states he changes the oil in his car then drove himself to [facility]. Once therapy got a chest x-ray and pelvic x-ray and transferred him to [facility] for definitive workup and treatment. Patient arrived alert and oriented with a [place] Coma Scale of 15 his only complaint was of upper mid back pain. He denies striking his head or losing consciousness. There was report that he was on Plavix and he was given TXA for a presumed positive FAST exam. On arrival he denies taking Plavix. He is hemodynamically stable Review of Systems Constitutional: DENIES: Diaphoretic episodes, Fatigue, Fever, Weight gain, Weight loss, Chills, Dizziness, Change in appetite, Night Sweats Endocrine: DENIES: Heat/cold intolerance, Polydipsia, Polyuria, Polyphagia Eyes: DENIES: Blurred vision, Diplopia, Eye inflammation, Eye pain, Vision loss , Photosensitivity, Double Vision Ears, nose, mouth, throat: DENIES: Tinnitus, Hearing loss, Vertigo, Nasal discharge, Oral lesions, Throat pain, Hoarseness, Ear Pain, Running Nose, Epistaxis, Sinus Pain, Toothache, Odynophagia Respiratory: DENIES: Apneas, Cough, Snoring, Wheezing, Hemoptysis, Sputum production, Shortness of breath Cardiovascular: DENIES: Chest pain, Palpitations, Syncope, Dyspnea on Exertion , PND, Lower Extremity Edema, Orthopnea, Claudication Gastrointestinal: DENIES: Abdominal pain, Black stools, Bloody stools, Constipation, Diarrhea, Nausea, Vomiting, Difficulty Swallowing, Anorexia Genitourinary: DENIES: Sexual dysfunction, Urinary frequency, Urinary incontinence, Urgency, Hematuria, Dysuria, Nocturia, Penile Discharge, Testicular Pain, Testicular Swelling Musculoskeletal: COMPLAINS OF: Back pain (acute upper thoracic, chronic lumbar) Integumentary: DENIES: Abnormal pigmentation, Nail changes, Pruritus, Rash Hematologic/lymphatic: DENIES: Bruising, Lymphadenopathy Immunologic/allergic: DENIES: Eczema, Urticaria Neurologic: DENIES: Abnormal gait, Headache, Localized weakness, Paresthesias, Seizures, Speech Problems, Tremor, Poor Balance Psychiatric: DENIES: Anxiety, Confusion, Mood changes, Depression, Hallucinations, Agitation, Suicidal Ideation, Homicidal Ideation, Delusions Past Family Social History Allergies: Coded Allergies: No Known Allergies (Unverified , 04/02/17) Past Medical History Hypertension, hypercholesterolemia, coronary artery disease, angina, BPH, history of TIA, diabetes Past Surgical History CABG 4, TURP, tonsillectomy Reported Medications Aspirin, Plavix has been reported but patient denies States he takes 3 medications Family History Reviewed, not relevant Social History Denies alcohol tobacco or drug use Physical Exam Vital Signs Vital Signs Date Time Temp Pulse Resp B/P (MAP) Pulse Ox O2 Delivery O2 Flow Rate FiO2 04/02/17 17:45 97 Nasal Cannula 2.00 04/02/17 17:45 69 18 128/66 (86) 97 Nasal Cannula 2.00 04/02/17 17:43 99.8 60 18 128/66 (86) 97 Nasal Cannula 2.00 Physical Exam A&O, NAD PERRL, EOMI, sclera non icteric, conjunctiva pink, mucosa moist Neck soft, NT, trachea midline CTA B, no tenderness or crepitus to palpation RRR Tender upper thoracic spine Abd soft, NT, ND Pelvis stable, non tender, palpable femoral arteries No CCE, palpable DP 2.5 cm laceration left anterior saez - washed out and closed in TB, superficial abrasion right anterior saez CN 2-12 grossly intact, no focal neurologic deficit Mood and affect appropriate Laboratory Laboratory Tests Test 04/02/17 17:09 White Blood Count 18.5 Red Blood Count 4.02 Hemoglobin 13.6 Bedside Hemoglobin 12.9 Hematocrit 39.6 Bedside Hematocrit 38.0 Mean Corpuscular Volume 98.5 Mean Corpuscular Hemoglobin 33.9 Mean Corpuscular Hemoglobin Concent 34.4 Red Cell Distribution Width 13.8 Platelet Count 138 Mean Platelet Volume 8.9 Neutrophils (%) (Auto) 85.7 Lymphocytes (%) (Auto) 5.5 Monocytes (%) (Auto) 7.7 Eosinophils (%) (Auto) 0.7 Basophils (%) (Auto) 0.4 Neutrophils # (Auto) 15.9 Lymphocytes # (Auto) 1.0 Monocytes # (Auto) 1.4 Eosinophils # (Auto) 0.1 Basophils # (Auto) 0.1 CBC Comment DIFF FINAL Differential Comment Prothrombin Time 11.1 Prothromb Time International Ratio 1.0 Activated Partial Thromboplast Time 25.0 Bedside Sodium 145 Bedside Potassium 4.5 Bedside Chloride 107 Bedside Blood Urea Nitrogen 21 Bedside Creatinine 1.8 Bedside Glucose 124 Result Diagram: 04/02/171708 Imaging Last [address] 04/02/171708 Signed Impressions: Service Date/Time: Sunday, April 02, 2017 17:14 - CONCLUSION: Negative trauma CT. Luis Roa MD Chest X-Ray 04/02/171708 Signed Impressions: Service Date/Time: Sunday, April 02, 2017 16:58 - CONCLUSION: 1. Limited suboptimal study demonstrating no acute cardiopulmonary disease. 2. Calcified gallstones. Luis Roa MD Chest CT 04/02/171708 Signed Impressions: Service Date/Time: Sunday, April 02, 2017 17:21 - CONCLUSION: 1. The known fractures of the T1 and T2 vertebral bodies are again visualized. Please see thoracic spine CT for further details. 2. Status post median sternotomy appears recent. There is increased density in the anterior mediastinum which represents small amount of hemorrhage or edema and is nonspecific. This could be postsurgical. 3. Multiple calcified gallstones. Luis Roa MD Cervical Spine CT 04/02/171708 Signed Impressions: Service Date/Time: Sunday, April 02, 2017 17:14 - CONCLUSION: 1. Racture' s of the T1 and T2 vertebral arteries. Please see thoracic spine CT for further details. 2. The cervical spine is intact with no cervical fracture. Luis Roa MD Abdomen/Pelvis CT 04/02/171708 Signed Impressions: Service Date/Time: Sunday, April 02, 2017 17:21 - CONCLUSION: 1. No evidence of visceral injury. 2. Calcified gallstones. 3. Left renal cysts. MD Wil Velarde VTE Risk Assessment Wil VTE Risk Assessment: Mod/High Risk (score >= 2) VTE Pharm Contraindication: Spinal surgery Caprini Risk Assessment Model Point Value = 1 Point Value = 2 Point Value = 3 Point Value = 5 Age 41-60 Minor surgery BMI > 25 kg/m2 Swollen legs Varicose veins or History of unexplained or recurrent spontaneous Oral contraceptives or hormone replacement Sepsis (< 1 month) Serious lung disease, including pneumonia (< 1 month) Abnormal pulmonary function Acute myocardial infarction Congestive heart failure (< 1 month) History of inflammatory bowel disease Medical patient at bed rest Age 61-74 Arthroscopic surgery Major open surgery (> 45 min) Laparoscopic surgery (> 45 min) Malignancy Confined to bed (> 72 hours) Immobilizing plaster cast Central venous access Age >= 75 History of VTE Family history of VTE Factor V Leiden Prothrombin [id number] Lupus anticoagulant Anticardiolipin antibodies Elevated serum homocysteine Heparin-induced thrombocytopenia Other congenital or acquired thrombophilia Stroke (< 1 month) Elective arthroplasty Hip, pelvis, or leg fracture Acute spinal cord injury (< 1 month) Prophylaxis Regimen Total Risk Factor Score Risk Level Prophylaxis Regimen 0-1 Low Early ambulation 2 Moderate Order ONE of the following: *Sequential Compression Device (SCD) *Heparin 5000 units SQ BID 3-4 Higher Order ONE of the following medications: *Heparin 5000 units SQ TID *Enoxaparin/Lovenox 40 mg SQ daily (WT < 150 kg, CrCl > 30 mL/min) *Enoxaparin/Lovenox 30 mg SQ daily (WT < 150 kg, CrCl > 10-29 mL/min) *Enoxaparin/Lovenox 30 mg SQ BID (WT < 150 kg, CrCl > 30 mL/min) AND/OR *Sequential Compression Device (SCD) 5 or more Highest Order ONE of the following medications: *Heparin 5000 units SQ TID (Preferred with Epidurals) *Enoxaparin/Lovenox 40 mg SQ daily (WT < 150 kg, CrCl > 30 mL/min) *Enoxaparin/Lovenox 30 mg SQ daily (WT < 150 kg, CrCl > 10-29 mL/min) *Enoxaparin/Lovenox 30 mg SQ BID (WT < 150 kg, CrCl > 30 mL/min) AND *Sequential Compression Device (SCD) Assessment and Plan Assessment and Plan fall from ladder approximately ten to fifteen feet with acute T1 and T2 fractures -Admit to the trauma service with telemetry -Maintain cervical collar with neurosurgery consult -Diabetic diet and by mouth pain control -PT to evaluate and treat in the morning -E force patient to determine which medications he is actually taking Cuco Urbina MD Apr 02, 2017 18:14
[2017-04-02] MEDS: ACETAMINOPHEN/HYDROcodone 325 MG/5 MG TAB PO PRN ×2 (18:15→22:00)
[2017-04-02] MEDS ORDERED: MORPHINE SULFATE 4 MG/ML INJ IV PUSH ONE (18:15)
[2017-04-02 19:00] VITALS: BP 149/83; PULSE 54; RESP 17; TEMP 99.5; O2SAT 95
[2017-04-02 19:21] LABS: CREATINE KINASE 595 U/L (39-308)
[2017-04-02 19:33] LABS: CKMB 22.2 NG/ML (0.5-3.6)
[2017-04-02 19:48] VITALS: BP 119/65; PULSE 76; RESP 18; O2SAT 100
[2017-04-02 21:01] VITALS: BP 149/83; PULSE 54; RESP 17; TEMP 99.5; O2SAT 95
[2017-04-02] MEDS: DOCUSATE SODIUM 100 MG CAP PO SCH (21:20)
[2017-04-02] MEDS ORDERED: MAGN400S PO (21:29)
[2017-04-02] MEDS ORDERED: DOCU1CAP39 PO (21:29)
[2017-04-02 23:34] VITALS: BP 101/59; PULSE 77; RESP 16; TEMP 100; O2SAT 94
[2017-04-03] VITALS (8 sets, daily range): BP systolic 90–128; BP diastolic 57–68; PULSE 52–91; RESP 16–18; TEMP 96.7–99.2; O2SAT 92–98
[2017-04-03] MEDS ORDERED: ALPR0.25 PO (00:10)
[2017-04-03] MEDS ORDERED: SERT-132 PO (00:11)
[2017-04-03] MEDS: ALPRAZolam 0.25 MG TAB PO PRN (00:55)
[2017-04-03] MEDS ORDERED: diphenhydrAMINE HCL 50 MG CAP PO ONE (01:00)
[2017-04-03] MEDS: ACETAMINOPHEN/HYDROcodone 325 MG/5 MG TAB PO PRN ×5 (02:55→20:15)
[2017-04-03] MEDS: CHLORHEXIDINE GLUCONATE 2 % 1 PACK (2 CLOTHS) TOP SCH (04:00)
[2017-04-03] MEDS: DOCUSATE SODIUM 100 MG CAP PO SCH ×2 (09:08→20:15)
[2017-04-03] MEDS: FAMOTIDINE 20 MG TAB PO SCH ×2 (09:08→20:15)
[2017-04-03] MEDS: ALLOPURINOL 100 MG TAB PO SCH (09:08)
[2017-04-03] MEDS: ASPIRIN 81 MG CHEW TAB CHEW SCH (09:09)
[2017-04-03] MEDS: ATORVASTATIN 40 MG TAB PO SCH (09:10)
[2017-04-03 09:47] LABS: AUTOMATED NEUTROPHIL # 8.7 TH/MM3 (1.8-7.7); BASOPHIL # 0.1 TH/MM3 (0-0.2); BASOPHIL % 0.7 % (0.0-2.0); EOSINOPHIL # 0.2 TH/MM3 (0-0.4); EOSINOPHIL % 1.6 % (0.0-4.0); HEMATOCRIT 36.6 % (39.0-51.0); HEMO FLAGS DIFF FINAL; LYMPH % 10.5 % (9.0-44.0); LYMPHOCYTE # 1.2 TH/MM3 (1.0-4.8); MEAN CELL VOLUME 97.5 FL (80.0-100.0); MEAN CORPUSCULAR HEMOGLOBIN 33.9 PG (27.0-34.0); MEAN CORPUSCULAR HGB CONC 34.8 % (32.0-36.0); MONO % 13.7 % (0.0-8.0); NEUT % 73.5 % (16.0-70.0); PLATELET COUNT 120 TH/MM3 (150-450); RED BLOOD COUNT 3.76 MIL/MM3 (4.50-5.90); RED CELL DISTRIBUTION WIDTH 13.9 % (11.6-17.2); WHITE BLOOD COUNT 11.8 TH/MM3 (4.0-11.0)
[2017-04-03 10:04] LABS: BICARBONATE 23.3 MEQ/L (21.0-32.0); POTASSIUM 3.7 MEQ/L (3.5-5.1)
--- NOTE | 2017-04-03 11:18 | HHI.PR ---
Subjective Subjective Notes PTD: 1 Patient sitting on side of the bed. at bedside. Patient states, "it hurts. I landed on my back. The pain is in my upper and lower back - I feel it in my chest, too." Patient states, "I have pain in my liver." Objective Vitals/I&O Vital Signs Date Time Temp Pulse Resp B/P (MAP) Pulse Ox O2 Delivery O2 Flow Rate FiO2 04/03/17 09:07 92 21 04/03/17 07:35 97.8 52 18 117/62 (80) 04/02/17 21:55 Nasal Cannula 2.00 Labs Laboratory Tests Test 04/02/17 17:09 04/03/17 09:01 White Blood Count 18.5 11.8 Red Blood Count 4.02 3.76 Hemoglobin 13.6 12.7 Bedside Hemoglobin 12.9 Hematocrit 39.6 36.6 Bedside Hematocrit 38.0 Mean Corpuscular Volume 98.5 97.5 Mean Corpuscular Hemoglobin 33.9 33.9 Mean Corpuscular Hemoglobin Concent 34.4 34.8 Red Cell Distribution Width 13.8 13.9 Platelet Count 138 120 Mean Platelet Volume 8.9 8.9 Neutrophils (%) (Auto) 85.7 73.5 Lymphocytes (%) (Auto) 5.5 10.5 Monocytes (%) (Auto) 7.7 13.7 Eosinophils (%) (Auto) 0.7 1.6 Basophils (%) (Auto) 0.4 0.7 Neutrophils # (Auto) 15.9 8.7 Lymphocytes # (Auto) 1.0 1.2 Monocytes # (Auto) 1.4 1.6 Eosinophils # (Auto) 0.1 0.2 Basophils # (Auto) 0.1 0.1 CBC Comment DIFF FINAL DIFF FINAL Differential Comment Prothrombin Time 11.1 Prothromb Time International Ratio 1.0 Activated Partial Thromboplast Time 25.0 Bedside Sodium 145 Bedside Potassium 4.5 Bedside Chloride 107 Bedside Blood Urea Nitrogen 21 Bedside Creatinine 1.8 Bedside Glucose 124 Total Creatine Kinase 595 Creatine Kinase MB 22.2 Creatine Kinase MB % 3.7 Troponin I LESS THAN 0.02 Blood Urea Nitrogen 27 Creatinine 1.87 Random Glucose 114 Calcium Level 8.2 Sodium Level 142 Potassium Level 3.7 Chloride Level 110 Carbon Dioxide Level 23.3 Anion Gap 9 Estimat Glomerular Filtration Rate 35 Radiology Last Impressions Thoracic Spine CT 04/02/171708 Signed Impressions: Service Date/Time: Sunday, April 02, 2017 17:19 - CONCLUSION: Fractures of the T1, T2 and T5 vertebral bodies with no retropulsion. Luis Rao MD Lumbar Spine CT 04/02/171708 Signed Impressions: Service Date/Time: Sunday, April 02, 2017 17:19 - CONCLUSION: Extensive degenerative changes as described above Subtle nondisplaced fracture right pedicle of L5 No other fractures are appreciated Marcio Stein MD FACR Head CT 04/02/171708 Signed Impressions: Service Date/Time: Sunday, April 02, 2017 17:14 - CONCLUSION: Negative trauma CT. Luis Roa MD Chest X-Ray 04/02/171708 Signed Impressions: Service Date/Time: Sunday, April 02, 2017 16:58 - CONCLUSION: 1. Limited suboptimal study demonstrating no acute cardiopulmonary disease. 2. Calcified gallstones. Luis Roa MD Chest CT 04/02/171708 Signed Impressions: Service Date/Time: Sunday, April 02, 2017 17:21 - CONCLUSION: 1. The known fractures of the T1 and T2 vertebral bodies are again visualized. Please see thoracic spine CT for further details. 2. Status post median sternotomy appears recent. There is increased density in the anterior mediastinum which represents small amount of hemorrhage or edema and is nonspecific. This could be postsurgical. 3. Multiple calcified gallstones. Luis Roa MD Cervical Spine CT 04/02/171708 Signed Impressions: Service Date/Time: Sunday, April 02, 2017 17:14 - CONCLUSION: 1. Racture' s of the T1 and T2 vertebral arteries. Please see thoracic spine CT for further details. 2. The cervical spine is intact with no cervical fracture. Luis Roa MD Abdomen/Pelvis CT 04/02/171708 Signed Impressions: Service Date/Time: Sunday, April 02, 2017 17:21 - CONCLUSION: 1. No evidence of visceral injury. 2. Calcified gallstones. 3. Left renal cysts. Luis Roa MD Narrative Exam GENERAL: This is a 82-year-old male sitting on the side of the bed. No distress noted. Pleasant and cooperative. SKIN: Warm and dry. HEAD: Atraumatic. Normocephalic. EYES: PERRLA ENT: No nasal bleeding or discharge. Mucous membranes pink and moist. NECK: Trachea midline. No JVD. CARDIOVASCULAR: Regular rate and rhythm. (No pain upon palpation of sternum) RESPIRATORY: No accessory muscle use. Lungs are clear to auscultation. Breath sounds equal bilaterally. No distress or dyspnea. GASTROINTESTINAL: BS + x 4 quads. Abdomen soft, non-tender, nondistended. ( Patient complains of pain to right lower/outer quadrant - no pain upon palpation ) MUSCULOSKELETAL: Extremities without cyanosis, or edema. + peripheral pulses x 4 extremities. Warm with good capillary refill and sensation. MAEW. ( Discomfort upon gentle palpation of the thoracic and lumbar spine.) NEUROLOGICAL: Awake and alert. Normal speech and pattern. A/P Problem List: (1) Open T1 vertebral fracture ICD Codes: S22.019B - Unspecified fracture of first thoracic vertebra, initial encounter for open fracture Status: Acute (2) T2 vertebral fracture ICD Codes: S22.029A - Unspecified fracture of second thoracic vertebra, initial encounter for closed fracture Status: Acute (3) Fracture of T5 vertebra ICD Codes: S22.059A - Unspecified fracture of T5-T6 vertebra, initial encounter for closed fracture Status: Acute (4) L5 vertebral fracture ICD Codes: S32.059A - Unspecified fracture of fifth lumbar vertebra, initial encounter for closed fracture Status: Acute (5) Trauma ICD Codes: T14.90 - Injury, unspecified Status: Acute Assessment and Plan [place]: This is a 82-year-old male who sustained a fall from a ladder. He was cutting trees. A branch fell and knocked him down. He sustained a fall of approximately 10-15 feet. (Supposedly he change the oil in his car first, and then drove himself to [facility].) He was a trauma transfer. GCS = 15. No LOC. (We were told he had a + FAST exam. [facility] gave him TXA because they believed he was on Plavix. But the patient adamantly denies being on Plavix.) PMHx: DM, HTN, HLD, CAD, angina, BPH, TIA PSxHx: CABG. TURP INJURIES: T1, T2, T5 vertebral body fx L5 fx of pedicle LEFT saez laceration (staple) Procedures: Consults: Neurosurgery. Case management. Diet: Regular diabetic diet. Tolerating po diet. Encourage good po intake with each meal. Pulmonary: Encourage good pulmonary toileting. IS at bedside and pt encouraged to use. Rationale for use explained to patient, and verbalized understanding. PAIN Management: [place] 5-10 mg q 4 hours. Toradol decreased to 15 mg IV q 6h. Added Robaxin 500 mg q 8 hours Activity: OOB with TLSO brace. PT ordered. (TLSO brace GI prophylaxis: Pepcid po hs. Bowel regimen: Colace and MOM. LBM: 0. DVT prophylaxis: Mechanical VTE with SCDs. Chemical management with Lovenox 30 BID SQ. DC Planning: Case management consulted for assistance with final discharge disposition. Tentative plan for discharge in 1-2 days as long as pain is controlled and ambulating with TLSO brace. Emotional support provided to patient and family at bedside and plan of care discussed. Discussed with RN at bedside. Patient is hemodynamically stable and being managed on the med/surg floor. The trauma team will round each day, and evaluate plan of care on a daily basis. T1, T2, T5 vertebral body fx L5 fx of pedicle Neurosurgery consulted and assisting in management and care No surgery intervention at this time. Supportive care TLSO brace Encourage bed with brace PT and OT ordered Pain management HTN DM HLD Depression Restarted home medications - Crestor, allopurinol, and ASA Restarted today Zoloft Remarks seen and examined with [facility] SPECIALIST-agree with assessment and plan c/o pain at fx sites back mild abdominal pain RUQ,benign abdominal exam pain control dvt prophylaxis Problem Qualifiers (1) Open T1 vertebral fracture: Qualified Codes: S22.019B - Unspecified fracture of first thoracic vertebra, initial encounter for open fracture (2) T2 vertebral fracture: Qualified Codes: S22.029A - Unspecified fracture of second thoracic vertebra, initial encounter for closed fracture (3) Fracture of T5 vertebra: Qualified Codes: S22.059A - Unspecified fracture of t5-T6 vertebra, initial encounter for closed fracture (4) L5 vertebral fracture: Qualified Codes: S32.059A - Unspecified fracture of fifth lumbar vertebra, initial encounter for closed fracture Sima Santana Apr 03, 2017 11:18 Adriana Yun MD Apr 03, 2017 12:51
--- NOTE | 2017-04-03 14:05 | EKG ---
Date Performed: 04/02/2017 Time Performed: 17:41:21 PTAGE: 89 years EKG: SINUS BRADYCARDIA MINIMAL VOLTAGE CRITERIA FOR LVH, CONSIDER NORMAL VARIANT NONSPECIFIC ST & T-WAVE ABNORMALITY BORDERLINE ECG NO PREVIOUS TRACING DOCTOR: Ibrahima [place] Interpretating Date/Time 04/03/2017 14:02:22
--- NOTE | 2017-04-03 16:41 | HHI.NSPN ---
Note Status Status: Progress Note Interval History Diagnosis T1 and T2 fractures Interval History This is a 82-year-old male who was a trauma alert transfer from [facility]. Aparently he was cutting trees today, when he fell 15-18 feet down from the tree onto the ground. Patient denies any loss of consciousness on scene. No seizure activity noted. No tongue biting. No incontinence of stool or urine. Apparently he drove himself to the hospital. He takes aspirin as well as atenolol. Patient has history of coronary artery disease and has history of CABG in the past. At [facility], he was given transaxemic acid as he did have a positive fast exam. Patient with complaints of pain all over his body at this time. CT of the thoracic spine show a T1 and T2 fracture. Neurosurgical consultation was requested 04/03. He reports persistent back pain No foCAL DEFICITS Labs, Micro, & Vital Signs Results Date Time Temp Pulse Resp B/P (MAP) Pulse Ox O2 Delivery O2 Flow Rate FiO2 04/03/17 15:50 98.8 56 18 122/60 (80) 92 04/03/17 12:00 96.9 65 18 107/60 (76) 94 04/03/17 11:48 96.9 65 18 107/60 (76) 94 04/03/17 09:07 92 21 04/03/17 07:35 97.8 52 18 117/62 (80) 95 04/03/17 04:00 97.9 60 16 90/57 (68) 98 04/02/17 23:34 100.0 77 16 101/59 (73) 94 04/02/17 21:55 Nasal Cannula 2.00 04/02/17 21:01 99.5 54 17 149/83 (105) 95 04/02/17 19:48 76 18 119/65 (83) 100 Room Air 04/02/17 17:45 97 Nasal Cannula 2.00 04/02/17 17:45 92 2.00 04/02/17 17:45 92 Nasal Cannula 2.00 04/02/17 17:45 69 18 128/66 (86) 97 Nasal Cannula 2.00 04/02/17 17:43 99.8 60 18 128/66 (86) 97 Nasal Cannula 2.00 04/04/17 07:00 Intake Total 620 ml Balance 620 ml Constitutional Vital Signs Date Time Temp Pulse Resp B/P (MAP) Pulse Ox O2 Delivery O2 Flow Rate FiO2 04/03/17 15:50 98.8 56 18 122/60 (80) 92 04/03/17 12:00 96.9 65 18 107/60 (76) 94 04/03/17 11:48 96.9 65 18 107/60 (76) 94 04/03/17 09:07 92 21 04/03/17 07:35 97.8 52 18 117/62 (80) 95 04/03/17 04:00 97.9 60 16 90/57 (68) 98 04/02/17 23:34 100.0 77 16 101/59 (73) 94 04/02/17 21:55 Nasal Cannula 2.00 04/02/17 21:01 99.5 54 17 149/83 (105) 95 04/02/17 19:48 76 18 119/65 (83) 100 Room Air 04/02/17 17:45 97 Nasal Cannula 2.00 04/02/17 17:45 92 2.00 04/02/17 17:45 92 Nasal Cannula 2.00 04/02/17 17:45 69 18 128/66 (86) 97 Nasal Cannula 2.00 04/02/17 17:43 99.8 60 18 128/66 (86) 97 Nasal Cannula 2.00 04/04/17 07:00 Intake Total 620 ml Balance 620 ml Physical Exam Mr Schultz is alert, awake and oriented to time, place and person. Speech is fluent. Higher cognitive functions are normal. Cranial nerve examination demonstrates the pupils to be equal, round, and reactive to light. Extra-ocular movements are intact. Facial motor and sensory function are normal and symmetrical. Gross hearing is decreased bilaterally. The uvula is midline and elevates symmetrically with the soft palate. Sternocleidomastoid and trapezius muscles have normal and symmetrical strength. Other cranial nerves are intact. Neck is soft and supple. Cervical spine has a goodl range of motion in anterior flexion, extension, lateral bending, and rotation without pain. There is no tenderness to palpation to the spinous processes or paraspinal muscles. Muscle testing reveals normal bulk and tone overall without rigidity, spasticity , fasciculations, or atrophy. Muscle strength is 5/5 in all muscle groups of both upper extremities including deltoid, biceps, triceps, brachioradialis, wrist extension and predatory animal hunter. In the lower extremities, strength is 5/5 in both iliopsoas, quadriceps, hamstrings, plantar flexion, dorsiflexion, and extensor hallicus longus. Sensory examination is intact to light touch and sharp/dull discrimination in both the upper and lower extremities, symmetrically. Deep tendon reflexes are 2+ and symmetrical in the biceps, triceps, and brachioradialis, bilaterally, in the upper extremities. In the lower extremities , the patellar and Achilles are 2+, bilaterally. There is a bilateral plantar flexion response. Hoffmanns sign is negative. There is no clonus or other abnormal reflexes noted. Cerebellar examination is intact to [id number] test, rapid rhythmic alternating motion. There is no dysmetria, dysdiadochokinesia, truncal ataxia, or tremor. Medications Current Medications Current Medications Cefazolin Sodium/ Dextrose 50 ml @ As Directed STK-MED ONCE .ROUTE ; Start at 17:11; Stop 04/02/17 at 17:12; Status DC Iohexol (Omnipaque 350 Inj) 75 ml STK-MED ONCE IVCONTRAST Last administered on 04/02/17 17:07; Start 04/02/17 at 17:07; Stop 04/02/17 at 17:41; Status DC Sodium Chloride (NS Flush) 2 ml UNSCH PRN IV FLUSH FLUSH AFTER USING IV ACCESS ; Start 04/02/17 at 18:00 Acetaminophen/ Hydrocodone Bitart ([place] 5-325 Mg) 1 tab Q4H PRN PO PAIN SCALE 1 TO 5 Last administered on 04/03/17 09:12; Start 04/02/17 at 18:00 Acetaminophen/ Hydrocodone Bitart ([place] 5-325 Mg) 2 tab Q4H PRN PO PAIN SCALE 6 TO 10 Last administered on 04/03/17 16:05; Start 04/02/17 at 18:00 Ketorolac Tromethamine (Toradol Inj) 30 mg Q6H PRN IVP BREAKTHROUGH PAIN Last administered on 04/02/17 21:57; Start 04/02/17 at 18:00; Stop 04/03/17 at 11:06; Status DC Enalaprilat (Vasotec Inj) 1.25 mg Q8H PRN IV SBP>180, DBP>95; Start 04/02/17 at 18:00 Ondansetron HCl (Zofran Inj) 4 mg Q4H PRN IV NAUSEA OR VOMITING; Start 04/02/17 at 18:00 Docusate Sodium (Colace) 100 mg BID PO Last administered on 04/03/17 09:08; Start 04/02/17 at 21:00 Magnesium Hydroxide (Milk Of Magnesia Liq) 30 ml Q6H PRN PO CONSTIPATION; Start 04/02/17 at 18:00 Miscellaneous Information 1 [id number] ; Start 04/02/17 at 18:00 Chlorhexidine Gluconate (Chlorhexidine 2% Cloth) 3 pack Taper DAILY@04 TOP ; Start 04/03/17 at 04:00; Stop 03/30/18 at 03:59 Chlorhexidine Gluconate (Chlorhexidine 2% Cloth) 3 pack UNSCH PRN TOP HYGIENIC CARE; Start 04/02/17 at 18:00 Morphine Sulfate (Morphine Inj) 4 mg ONCE ONCE IV PUSH ; Start 04/02/17 at 18:15 ; Stop 04/02/17 at 18:15; Status DC Famotidine (Pepcid) 20 mg BID PO Last administered on 04/03/17 09:08; Start 04/03/17 at 09:00 Allopurinol (Zyloprim) 100 mg DAILY PO Last administered on 04/03/17 09:08; Start 04/03/17 at 09:00 Aspirin (Aspirin Chew) 81 mg DAILY CHEW Last administered on 04/03/17 09:09; Start 04/03/17 at 09:00 Atorvastatin Calcium (Lipitor) 40 mg DAILY PO Last administered on 04/03/17 09: 10; Start 04/03/17 at 09:00 Alprazolam (Xanax) 0.25 mg TID PRN PO ANXIETY Last administered on 04/03/17 00: 55; Start 04/03/17 at 01:00 Diphenhydramine HCl (Benadryl) 50 mg HS PO ; Start 04/03/17 at 21:00 Diphenhydramine HCl (Benadryl) 50 mg ONCE ONCE PO ; Start 04/03/17 at 01:00; Stop 04/03/17 at 01:01; Status DC Ketorolac Tromethamine (Toradol Inj) 15 mg Q6H PRN IVP BREAKTHROUGH PAIN; Start 04/03/17 at 12:00; Status UNV Methocarbamol (Robaxin) 500 mg Q8HR PO ; Start 04/03/17 at 14:00; Status UNV Enoxaparin Sodium (Lovenox Inj) 30 mg Q12H SQ ; Start 04/03/17 at 11:15; Status UNV Sertraline HCl (Zoloft) 50 mg DAILY PO ; Start 04/03/17 at 11:15 Medical Decision Making MDM Remarks Last 48 hours Impressions Thoracic Spine CT 04/02/171708 Signed Impressions: Service Date/Time: Sunday, April 02, 2017 17:19 - CONCLUSION: Fractures of the T1, T2 and T5 vertebral bodies with no retropulsion. Luis Roa MD Lumbar Spine CT 04/02/171708 Signed Impressions: Service Date/Time: Sunday, April 02, 2017 17:19 - CONCLUSION: Extensive degenerative changes as described above Subtle nondisplaced fracture right pedicle of L5 No other fractures are appreciated Marcio Stein MD FACR Head CT 04/02/171708 Signed Impressions: Service Date/Time: Sunday, April 02, 2017 17:14 - CONCLUSION: Negative trauma CT. Luis Roa MD Chest X-Ray 04/02/171708 Signed Impressions: Service Date/Time: Sunday, April 02, 2017 16:58 - CONCLUSION: 1. Limited suboptimal study demonstrating no acute cardiopulmonary disease. 2. Calcified gallstones. Luis Roa MD Chest CT 04/02/171708 Signed Impressions: Service Date/Time: Sunday, April 02, 2017 17:21 - CONCLUSION: 1. The known fractures of the T1 and T2 vertebral bodies are again visualized. Please see thoracic spine CT for further details. 2. Status post median sternotomy appears recent. There is increased density in the anterior mediastinum which represents small amount of hemorrhage or edema and is nonspecific. This could be postsurgical. 3. Multiple calcified gallstones. Luis Roa MD Cervical Spine CT 04/02/171708 Signed Impressions: Service Date/Time: Sunday, April 02, 2017 17:14 - CONCLUSION: 1. Racture' s of the T1 and T2 vertebral arteries. Please see thoracic spine CT for further details. 2. The cervical spine is intact with no cervical fracture. Luis Roa MD Abdomen/Pelvis CT 04/02/171708 Signed Impressions: Service Date/Time: Sunday, April 02, 2017 17:21 - CONCLUSION: 1. No evidence of visceral injury. 2. Calcified gallstones. 3. Left renal cysts. Luis Roa MD Attending Statement Neuro. Continue neuro checks. WIll obtain MRI cervical and thoracic spine T1 and T2 fractures. Continue TLSO brace Pulmonary. pulmonary toilette, nasotracheal suction, and breathing treatments with nebulizers. Eval PT and OT Nutrition. Tolerating Oral diet Renal. monitor closely urine output, BUN and creatinine Endocrine. Monitor serial Acu checks and SSI as needed in detail ID monitor for signs of infection Protonix for stress ulcer prophylaxis Neil hose and SCD's for DVT prophylaxis Jayjay Hardin MD Apr 03, 2017 16:41
[2017-04-03] MEDS: METHOCARBAMOL 500 MG TAB PO SCH ×2 (17:00→20:15)
[2017-04-03] MEDS: ENOXAPARIN SODIUM 30 MG/0.3 ML SYRINGE SQ SCH (17:38)
[2017-04-03] MEDS ORDERED: KETOROLAC TROMETHAMINE 30 MG/ML (IVP) VIAL IVP PRN (18:00)
--- NOTE | 2017-04-03 20:07 | RADRPT ---
EXAM DATE/TIME: 04/03/2017 19:02 [facility] COMPARISON: No previous studies available for comparison. INDICATIONS : Pain. MEDICAL HISTORY : Benign prostatic hyperplasia, (BPH) SURGICAL HISTORY : CABG Testicular repair. TURP. ENCOUNTER: Subsequent ACUITY: 3 day PAIN SCORE: 6/10 LOCATION: Thoracic spine. TECHNIQUE: Multiplanar multisequence MRI of the thoracic spine was performed. FINDINGS: MRI confirms compression fractures of the T1 and T2 vertebral bodies without significant retropulsion . There is a mild disc protrusion at C7-T1. There are also mild compression fractures of the inferior endplate of T5 and T9 without retropulsion. No thoracic cord signal abnormality. No spondylolisthesis. There may also be a very mild compression fracture through superior plate of T4. CONCLUSION: 1. Compression fractures of T1, T3 and T5 as seen on recent CT. 2. MRI also confirms mild compression fracture of superior endplate T4 and inferior endplate T9 witho ut retropulsion. No cord signal abnormality. No spondylolisthesis. 3. Mild disc protrusion at C7-T1. Juan Mcguire MD on April 03, 2017 at 20:01 Board Certified Radiologist. This report was verified electronically.
[2017-04-03] MEDS: SERTRALINE HCL 50 MG TAB PO SCH (20:15)
[2017-04-03] MEDS ORDERED: diphenhydrAMINE HCL 50 MG CAP PO SCH (21:00)
--- NOTE | 2017-04-03 21:07 | RADRPT ---
EXAM DATE/TIME: 04/03/2017 19:02 [facility] COMPARISON: CT THORACIC SPINE W/O CONTRAST, April 02, 2017, 17:19. INDICATIONS : Pain. MEDICAL HISTORY : Benign prostatic hyperplasia, (BPH) SURGICAL HISTORY : CABG TURP. Testicular repair. ENCOUNTER: Subsequent ACUITY: 3 day PAIN SCORE: 5/10 LOCATION: neck TECHNIQUE: Multiplanar, multisequence MRI examination of the cervical spine was performed. FINDINGS: No cervical spine fractures identified. There are mild posterior disc protrusions at N5-7-9-C7-T1 with effacement of the thecal sac around th e cord without significant cord compression. Multilevel foraminal encroachment. Incidental note made of fractures of T1 and T2 previously evaluated on CT and MRI. CONCLUSION: 1. No acute cervical spine fracture. Mild disc protrusions from C4-T1 effacing the thecal sac without significant cord compression. No cord signal abnormality. Juan Mcguire MD on April 03, 2017 at 21:03 Board Certified Radiologist. This report was verified electronically.
[2017-04-04] MEDS: ALPRAZolam 0.25 MG TAB PO PRN (00:24)
[2017-04-04] MEDS: ACETAMINOPHEN/HYDROcodone 325 MG/5 MG TAB PO PRN ×3 (01:26→12:42)
[2017-04-04] MEDS: CHLORHEXIDINE GLUCONATE 2 % 1 PACK (2 CLOTHS) TOP SCH (01:55)
[2017-04-04] MEDS: ENOXAPARIN SODIUM 30 MG/0.3 ML SYRINGE SQ SCH (05:51)
[2017-04-04] MEDS: METHOCARBAMOL 500 MG TAB PO SCH ×2 (05:51→12:35)
--- NOTE | 2017-04-04 07:25 | HHI.FF ---
Face to Face Verification Diagnosis: (1) Trauma (2) Open T1 vertebral fracture (3) L5 vertebral fracture (4) T2 vertebral fracture (5) Fracture of T5 vertebra Physical Therapy Order: Evaluate and Treat, Improve ambulation, Strength and gait training Home Health Nursing Order: Medical education Signs/symptoms of disease process Medication education-adverse effect Nursing assessment with vital signs I have seen patient Arik Schultz on 04/04/17. My clinical findings support the need for the requested home health care services because: Ltd mobility - disease progression Deconditioned w/ increased weakness Limited ability to care for self High risk of falls I certify that my clinical findings support that this patient is homebound because: Post-op weakness Unsteady gait/balance Unsafe to leave home unassisted Unable to use public transportation Sima Santana Apr 04, 2017 07:25
[2017-04-04 07:41] VITALS: BP 114/67; PULSE 71; RESP 19; TEMP 98.7; O2SAT 95
[2017-04-04] MEDS: ATORVASTATIN 40 MG TAB PO SCH (08:21)
[2017-04-04] MEDS: FAMOTIDINE 20 MG TAB PO SCH (08:21)
[2017-04-04] MEDS: DOCUSATE SODIUM 100 MG CAP PO SCH (08:21)
[2017-04-04] MEDS: SERTRALINE HCL 50 MG TAB PO SCH (08:21)
[2017-04-04] MEDS: ALLOPURINOL 100 MG TAB PO SCH (08:21)
[2017-04-04] MEDS: ASPIRIN 81 MG CHEW TAB CHEW SCH (08:21)
[2017-04-04] MEDS ORDERED: METH500T3 PO (11:38)
[2017-04-04] MEDS ORDERED: HYDR-3516 PO (11:38)
--- NOTE | 2017-04-04 11:46 | HHI.DS ---
Discharge Summary Admission Date Apr 02, 2017 at 18:14 Discharge Date: Apr 04, 2017 Admitting Diagnosis (1) Open T1 vertebral fracture ICD Codes: S22.019B - Unspecified fracture of first thoracic vertebra, initial encounter for open fracture Status: Acute (2) T2 vertebral fracture ICD Codes: S22.029A - Unspecified fracture of second thoracic vertebra, initial encounter for closed fracture Status: Acute (3) Fracture of T5 vertebra ICD Codes: S22.059A - Unspecified fracture of T5-T6 vertebra, initial encounter for closed fracture Status: Acute (4) L5 vertebral fracture ICD Codes: S32.059A - Unspecified fracture of fifth lumbar vertebra, initial encounter for closed fracture Status: Acute (5) Trauma ICD Codes: T14.90 - Injury, unspecified Status: Acute Brief History Fall from a ladder. CBC/BMP: 04/03/17 0901 04/03/17 0901 Significant Findings Laboratory Tests Test 04/02/17 17:09 04/03/17 09:01 White Blood Count 18.5 TH/MM3 (4.0-11.0) 11.8 TH/MM3 (4.0-11.0) Red Blood Count 4.02 MIL/MM3 (4.50-5.90) 3.76 MIL/MM3 (4.50-5.90) Platelet Count 138 TH/MM3 (150-450) 120 TH/MM3 (150-450) Neutrophils (%) (Auto) 85.7 % (16.0-70.0) 73.5 % (16.0-70.0) Lymphocytes (%) (Auto) 5.5 % (9.0-44.0) Neutrophils # (Auto) 15.9 TH/MM3 (1.8-7.7) 8.7 TH/MM3 (1.8-7.7) Monocytes # (Auto) 1.4 TH/MM3 (0-0.9) 1.6 TH/MM3 (0-0.9) Bedside Creatinine 1.8 MG/DL (0.8-1.3) Bedside Glucose 124 MG/DL (60-95) Total Creatine Kinase 595 U/L (39-308) Creatine Kinase MB 22.2 NG/ML (0.5-3.6) Troponin I LESS THAN 0.02 NG/ML Hemoglobin 12.7 GM/DL (13.0-17.0) Hematocrit 36.6 % (39.0-51.0) Monocytes (%) (Auto) 13.7 % (0.0-8.0) Blood Urea Nitrogen 27 MG/DL (7-18) Creatinine 1.87 MG/DL (0.60-1.30) Random Glucose 114 MG/DL (74-106) Calcium Level 8.2 MG/DL (8.5-10.1) Chloride Level 110 MEQ/L (98-107) Estimat Glomerular Filtration Rate 35 ML/MIN (>89) Imaging Last Impressions Thoracic Spine MRI 04/03/17 0000 Signed Impressions: Service Date/Time: Monday, April 03, 2017 19:02 - CONCLUSION: 1. Compression fractures of T1, T3 and T5 as seen on recent CT. 2. MRI also confirms mild compression fracture of superior endplate T4 and inferior endplate T9 without retropulsion. No cord signal abnormality. No spondylolisthesis. 3. Mild disc protrusion at C7-T1. Juan Mcguire MD Cervical Spine MRI 04/03/17 0000 Signed Impressions: Service Date/Time: Monday, April 03, 2017 19:02 - CONCLUSION: 1. No acute cervical spine fracture. Mild disc protrusions from C4-T1 effacing the thecal sac without significant cord compression. No cord signal abnormality. Juan Mcguire MD Thoracic Spine CT 04/02/171708 Signed Impressions: Service Date/Time: Sunday, April 02, 2017 17:19 - CONCLUSION: Fractures of the T1, T2 and T5 vertebral bodies with no retropulsion. Luis Roa MD Lumbar Spine CT 04/02/171708 Signed Impressions: Service Date/Time: Sunday, April 02, 2017 17:19 - CONCLUSION: Extensive degenerative changes as described above Subtle nondisplaced fracture right pedicle of L5 No other fractures are appreciated Marcio Stein MD FACR Head CT [id number]/02/171708 Signed Impressions: Service Date/Time: Sunday, April 02, 2017 17:14 - CONCLUSION: Negative trauma CT. Luis Roa MD Chest X-Ray 04/02/171708 Signed Impressions: Service Date/Time: Sunday, April 02, 2017 16:58 - CONCLUSION: 1. Limited suboptimal study demonstrating no acute cardiopulmonary disease. 2. Calcified gallstones. Luis Roa MD Chest CT 04/02/171708 Signed Impressions: Service Date/Time: Sunday, April 02, 2017 17:21 - CONCLUSION: 1. The known fractures of the T1 and T2 vertebral bodies are again visualized. Please see thoracic spine CT for further details. 2. Status post median sternotomy appears recent. There is increased density in the anterior mediastinum which represents small amount of hemorrhage or edema and is nonspecific. This could be postsurgical. 3. Multiple calcified gallstones. Luis Roa MD Cervical Spine CT 04/02/171708 Signed Impressions: Service Date/Time: Sunday, April 02, 2017 17:14 - CONCLUSION: 1. Racture' s of the T1 and T2 vertebral arteries. Please see thoracic spine CT for further details. 2. The cervical spine is intact with no cervical fracture. Luis Roa MD Abdomen/Pelvis CT 04/02/171708 Signed Impressions: Service Date/Time: Sunday, April 02, 2017 17:21 - CONCLUSION: 1. No evidence of visceral injury. 2. Calcified gallstones. 3. Left renal cysts. Luis Roa MD PE at Discharge GENERAL: This is a 82-year-old male OOD and sitting in a chair. TLSO brace on. No distress noted. Pleasant and cooperative. SKIN: Warm and dry. HEAD: Atraumatic. Normocephalic. EYES: PERRLA ENT: No nasal bleeding or discharge. Mucous membranes pink and moist. NECK: Trachea midline. No JVD. CARDIOVASCULAR: Regular rate and rhythm. RESPIRATORY: No accessory muscle use. Lungs are clear to auscultation. Breath sounds equal bilaterally. No distress or dyspnea. GASTROINTESTINAL: BS + x 4 quads. Abdomen soft, non-tender, nondistended. MUSCULOSKELETAL: Extremities without cyanosis, or edema. + peripheral pulses x 4 extremities. Warm with good capillary refill and sensation. MAEW. NEUROLOGICAL: Awake and alert. Normal speech and pattern. Hospital Course MARSHALL: This is a 82-year-old male who sustained a fall from a ladder. He was cutting trees. A branch fell and knocked him down. He sustained a fall of approximately 10-15 feet. (Supposedly he change the oil in his car first, and then drove himself to [facility].) He was a trauma transfer. GCS = 15. No LOC. (We were told he had a + FAST exam. [facility] gave him TXA because they believed he was on Plavix. But the patient adamantly denies being on Plavix.) PMHx: DM, HTN, HLD, CAD, angina, BPH, TIA PSxHx: CABG. TURP INJURIES: T1, T2, T5 vertebral body fx L5 fx of pedicle LEFT saez laceration (staple) Procedures: Consults: Neurosurgery. Case management. The patient is now tolerating a po diet. Eating and drinking well. Pain is being managed well with PO pain medications, and patient is being a provided with a script for pain meds upon discharge. (NO driving while taking narcotic pain medication enforced to patient.) We have recommended to patient to continue with stool softeners while taking narcotic pain medications to prevent constipation. Pt has been participating in PT and OT while admitted at [place] and has been ambulating with their assistance and independently . Patient observed walking the nursing unit in excess of 200 feet unassisted today. Patient must wear TLSO brace at all times when out of bed. No driving. All follow up appointments have been provided and discussed with the patient. It is recommended that the patient keeps all his follow up appointments for continued recovery. Therefore, the patient is stable to be safely discharged home into his 's care from a trauma surgery standpoint. Thank you for allowing us to participate in his care. We wish Arki the best in his recovery. T1, T2, T5 vertebral body fx L5 fx of pedicle Neurosurgery consulted and assisting in management and care No surgery intervention at this time. Supportive care TLSO brace Encourage bed with brace PT and OT ordered Patient observed walking the nursing unit on assisted Pain management Reiterated to patient - no driving HTN DM HLD Depression Continue home medications - Crestor, allopurinol, and ASA Continue Zoloft Pt Condition on Discharge: Stable Discharge Disposition: Disch w/ Home Health Serv Discharge Instructions DIET: Follow Instructions for: Heart Healthy Diet, Diabetic Diet Activities you can perform: Regular-No Restrictions Activities to Avoid: Concussion Sports, Contact Sports, Strenuous Activity, Driving Other Activity Instructions: No Driving. Remarks seen and examined with INTERACTIVE VIDEO TECHNICIAN-agree with assessment and plan ambulating with brace,pain controlled cleared by PT DC home with Sima Almeida Apr 04, 2017 11:46 Adriana Yun MD Apr 04, 2017 14:13
[2017-04-04] MEDS ORDERED: FAMOTIDINE 20 MG TAB PO SCH (21:00)
== END 2017-04-04 15:45 | disposition home or self-care (01) | DRG 552 ==
LOC: NEPI 17:06 → EDBD 18:14 → NEDA 18:14 → N06A 20:06
PROVIDERS: ADMIT Surgery; ATTEND Surgery
PROC: 0HQLXZZ Repair Left Lower Leg Skin, External Approach (ICD-10-PCS; principal; 2017-04-02)
DX: S22.019A Unspecified fracture of first thoracic vertebra, initial encounter for closed fracture (principal); S32.059A Unspecified fracture of fifth lumbar vertebra, initial encounter for closed fracture; S81.812A Laceration without foreign body, left lower leg, initial encounter; E11.9 Type 2 diabetes mellitus without complications; S22.029A Unspecified fracture of second thoracic vertebra, initial encounter for closed fracture; W11.XXXA Fall on and from ladder, initial encounter; W20.8XXA Other cause of strike by thrown, projected or falling object, initial encounter; Y93.H2 Activity, gardening and landscaping; Y92.89 Other specified places as the place of occurrence of the external cause; I10 Essential (primary) hypertension; E78.5 Hyperlipidemia, unspecified; F32.9 Major depressive disorder, single episode, unspecified; N40.0 Benign prostatic hyperplasia without lower urinary tract symptoms; I25.10 Atherosclerotic heart disease of native coronary artery without angina pectoris; Z95.1 Presence of aortocoronary bypass graft; Z86.73 Personal history of transient ischemic attack (TIA), and cerebral infarction without residual deficits
CPT/HCPCS: 70450; 71010; 71260; 72125; 72128; 72131; 72141; 72146; 74177; 80048; 82435; 82550; 82552; 82565; 82947; 84132; 84295; 84484; 84520; 85025; 85610; 85730; 86850; 86900; 86901; 93005; 94150; 99285; J0690; J1650; J1885; L0150; L0200; L0484; Q9967

== ENCOUNTER → 2017-07-05 | Outpatient (CLI) | payer MEDICARE, BC ==
[~2017-07-05] MED LIST: ALLO100T PO; ALPR0.25 PO; ASPI-516 CHEW; DOCU1CAP39 PO; HYDR-3516 PO; MAGN400S PO; METH500T3 PO; ROSU20 PO; SERT-132 PO
--- NOTE | 2017-07-05 13:15 | RADRPT ---
EXAM DATE/TIME: 07/05/2017 10:47 [facility] COMPARISON : INDICATIONS : Compression fracture HISTORY OF PRESENT ILLNESS: CT scan of 04/02/17 an MRI dated 04/03/17 are reviewed for evaluation of treatment of compression fr acture. The most severe abnormalities at T1 and T2 or above the level for safe kyphoplasty. There is only minimal marrow edema involving the T5 and T9 vertebral bodies. If the patient has symptoms that persist in the mid or lower thoracic spine they may be a candidate for kyphoplasty dose secondary sec ondary to the age of the examination repeat MRI would be recommended prior to consideration of interv ention at these levels. Roscoe Strange MD on July 05, 2017 at 13:04 Board Certified Radiologist. This report was verified electronically.
== END ==
LOC: HRAD 08:47
PROVIDERS: ATTEND Internal Medicine
DX: M48.44XA Fatigue fracture of vertebra, thoracic region, initial encounter for fracture (principal)